=== PATIENT | male | born 1985 | race Caucasian/White ===

== ENCOUNTER → 2020-05-07 11:18 | Outpatient (CLI) | payer OTHER, SELFPAY ==
[2020-05-07 15:18] LABS: Anion Gap 6 (5-15); BUN 12 mg/dL (7-18); Calcium,Total 8.9 mg/dL (8.5-10.1); Chloride 109 mmol/L (98-107); Cholesterol 251 mg/dL (200); Creatinine, Serum 0.92 mg/dL (0.70-1.30); EST Glomerular Filtration Rate 101 mL/min (>60); Est Glom Filt Rate - Afr Amer 122 mL/min (>60); Glucose 119 mg/dL (74-106); High Density Lipoprotein 38 mg/dL; Potassium 4.2 mmol/L (3.5-5.1); Sodium Level 139 mmol/L (136-145); Triglycerides 326 mg/dL; Very Low Density Lipoprotein 65 mg/dL (5-40)
== END ==
PROVIDERS: PCP Family Medicine; Referring Provider Family Medicine; Visit Provider Family Medicine
DX: Z13.1 Encounter for screening for diabetes mellitus (principal); Z13.220 Encounter for screening for lipoid disorders
CPT/HCPCS: 36415; 80048; 80061

== ENCOUNTER → 2020-06-18 09:21 | Outpatient (CLI) | payer OTHER, SELFPAY | PROVIDERS: PCP Family Medicine; Visit Provider Family Medicine | DX: Z20.828 Contact with and (suspected) exposure to other viral communicable diseases (principal) | CPT/HCPCS: 87635; U0003 ==

== ENCOUNTER → 2021-03-18 09:36 | Outpatient (CLI) | payer OTHER, SELFPAY ==
[2021-03-18 12:35] LABS: Hemoglobin A1c 5.7 % (3.8-5.6)
[2021-03-18 12:37] LABS: AST(SGOT) 50 U/L (15-37); Alanine Aminotransfer ALT/SGPT 97 U/L (16-61); Albumin, Serum 3.7 g/dL (3.2-5.0); Alkaline Phosphatase 86 U/L (45-117); Anion Gap 6 (5-15); BUN 11 mg/dL (7-18); BUN/Creat Ratio 12.7 RATIO (10-20); Calcium,Total 8.8 mg/dL (8.5-10.1); Chloride 108 mmol/L (98-107); Cholesterol 241 mg/dL (200); Creatinine, Serum 0.86 mg/dL (0.70-1.30); EST Glomerular Filtration Rate 108 mL/min (>60); Est Glom Filt Rate - Afr Amer 130 mL/min (>60); Globulin 3.8 g/dL (2.2-4.2); Glucose 121 mg/dL (74-106); High Density Lipoprotein 34 mg/dL; Potassium 4.1 mmol/L (3.5-5.1); Protein, Total 7.5 g/dL (6.4-8.2); Sodium Level 139 mmol/L (136-145); Triglycerides 355 mg/dL; Very Low Density Lipoprotein 71 mg/dL (5-40)
== END ==
PROVIDERS: PCP Family Medicine; Referring Provider Family Medicine; Visit Provider Family Medicine
DX: R73.01 Impaired fasting glucose (principal); E78.5 Hyperlipidemia, unspecified
CPT/HCPCS: 36415; 80053; 80061; 83036

== ENCOUNTER 2023-12-15 17:25 | Emergency (ER) | payer BC, SELFPAY ==
[2023-12-15 17:25] VITALS: BP 125/90; PULSE 107; RESP 16; TEMP 36.6; O2SAT 99; BMI 33.0
--- NOTE | 2023-12-15 17:45 | RAD_ITS ---
STUDY: X-RAY - LEFT ANKLE REASON FOR EXAM: Male, 38 years old. SWELLING TECHNIQUE: 3 view(s) of the ankle. COMPARISON: None. FINDINGS: Normal visualized distal tibia and fibula. Normal medial and lateral malleoli. Normal tibiotalar articulation and ankle mortise. Normal visualized talus and calcaneus. The visualized subtalar, talonavicular, calcaneocuboid and tarsal articulations are normal. There is no demonstrated fracture. The soft tissue structures are unremarkable. RAD/Ankle min 3 Views IMPRESSION: Normal x-ray examination of the ankle. Electronically Signed: Ramón Johnson MD at 19:29 EDT ,
--- NOTE | 2023-12-15 18:29 | EDS_ITS ---
HPI History of Present Illness Chief Complaint: Lower Extremity Injury Narrative Narrative: 38-year-old male who denies significant past medical history presents with left foot pain to left ankle pain that he has had over the last few days. He relates history that he went to urgent care approximately 2 months ago but he had more medial foot and ankle pain. Now, he is having pain at the base of his fourth and fifth digits on his left foot, and on the lateral side of his foot. When he tries to move his foot and toes, he gets pain radiating up to his ankle. He denies any fevers or chills, no nausea or vomiting, no other symptoms. He describes the pain as sharp, and burning as well. PFSH PFS Home Medications ?Medication ?Instructions ?Recorded ?Last Taken ?Type NK 12/15/23 Unknown History epinephrine 0.3 mg/0.3 mL 0.3 mg (0.3 mL) IM Q4H PRN 12/15/23 Unknown Rx injection, auto-injector anaphylaxis #2 ea gabapentin 100 mg capsule 100 mg PO TID #21 caps 12/15/23 Unknown Rx Allergy/AdvReac Type Severity Reaction Status Date / Time No Known Allergies Allergy Verified 12/15/23 17:27 Social History Smoking Status: Never smoker ROS ROS ED ROS Narrative Constitutional: No fever, no chills. HEENT: No sore throat. No neck pain. No loss of vision. No rhinorrhea. Cardiovascular: No chest pain. No palpitations. No pedal edema. Respiratory: No cough, no shortness of breath. Abdominal: No abdominal pain. No nausea. No vomiting. Genitourinary: No dysuria. No hematuria. Musculoskeletal: No myalgias. Positive left foot and left ankle pain. Foot pain on the lateral aspect and on the top of his foot at the base of the fourth and fifth digits. Neurologic: No headaches. No dizziness. No lightheadedness. Skin: No rash. No change in color. Psychiatric: No depression. No anxiety. EXAM Physical Exam Narrative Exam Narrative: Afebrile. Vital signs noted. Regular rate and rhythm. Lungs clear to auscultation bilaterally. Abdomen soft nontender. Neurovascular intact left lower extremity with palpable dorsalis pedis pulse. No overt edema. 16-year-old no proximal fibular head tenderness. No Achilles tendon deficit. Positive dorsiflexion and plantarflexion at left ankle. Const Vital Signs: 12/15/23 17:25 Temperature 98 F Temperature Source Temporal Pulse Rate 107 H Respiratory Rate 16 Blood Pressure 125/90 H Blood Pressure Mean 101 Pulse Ox 99 Oxygen Delivery Method Room Air MDM MDM MDM Narrative Medical decision making narrative: Concern is for neuropathic pain, I have low suspicion for fracture concern is for neuropathic pain, I have low suspicion for fracture. However, x-rays will be obtained to rule out fracture, nurse ordered x-rays of the ankle, but I want to see where he is having his pain that is worse with standing and weightbearing on the foot. I do feel he would benefit from gabapentin and follow-up with podiatry on-call. X-rays of the left ankle and x-rays of the left foot were interpreted by myself independently and there is no evidence of acute fracture in the left ankle or the left foot. I reviewed the radiology reports for both x-rays, and radiology report confirms my independent interpretation. At this point in time, he was written a prescription for 21 gabapentin 100 mg capsules to take up to 3 times daily for his neuropathic pain. I feel he probably has more of a peripheral neuropathy or neuropathic pain. He was referred to the retention manager on-call, Dr. Gayle. He states he has an ankle brace at home that he can wear. 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 He should follow-up with her primary care physician for future prescription refills. I feel he can be discharged safely home with follow-up. Return instructions reviewed. Disposition is discharged home in stable condition. History & Record Review Discussion w/independent historian: Patient Radiography Diagnostic Testing: Clinical Impression(s) from Imaging Studies Ankle X-Ray 12/15/23 17:45 IMPRESSION: Normal x-ray examination of the ankle. Electronically Signed: Ramón Johnson MD at 19:29 EDT , Foot X-Ray 12/15/23 18:38 IMPRESSION: Normal x-ray examination of the foot. Electronically Signed: Ramón Johnson MD at 19:35 EDT , Discharge Plan Triage Chief Complaint: Lower Extremity Injury ED Provider: Rodrigo Palmer Dx/Rx/DC Orders Clinical Impression: Left foot pain, Neuropathic pain of left foot, Has run out of medications Instructions: ED Neuropathy, Peripheral, ED Pain, Acute, Uncertain Cause Prescriptions: New gabapentin 100 mg capsule 100 mg PO TID Qty: 21 0RF epinephrine 0.3 mg/0.3 mL auto-injector 0.3 mg IM Q4H PRN (Reason: anaphylaxis) Qty: 2 0RF No Action NK Primary Care Provider: Care Physician,No Primary Referrals: Alpesh Gayle DPM [Med Staff - Active Staff] - 3-5 Days NOT,DEFINED [Non-Staff] - Print Language: Burmese Disposition Disposition: Home, Self Care
--- NOTE | 2023-12-15 18:38 | RAD_ITS ---
STUDY: X-RAY - LEFT FOOT CLINICAL: Male, 38 years old. Pain TECHNIQUE: 3 view(s) of the foot. COMPARISON: None. FINDINGS: Normal talus, calcaneus, and tarsal bones. Normal visualized subtalar, talonavicular, calcaneocuboid, tarsal and tarsometatarsal articulations. Normal metatarsi. Normal metatarsophalangeal joint of the great toe. Normal tibial and fibular sesamoid bones. Normal interphalangeal joint of the great toe. Normal phalanges of the great toe. Normal second through fifth metatarsophalangeal joints. Normal interphalangeal joints and phalanges of the lesser toes. The soft tissue structures are unremarkable. There is no demonstrated fracture. RAD/Foot min 3 Views IMPRESSION: Normal x-ray examination of the foot. Electronically Signed: Ramón Johnson MD at 19:35 EDT ,
== END 2023-12-15 20:04 | disposition home or self-care (01) ==
PROVIDERS: Emergency Provider Emergency Medicine; Visit Provider Emergency Medicine
DX: G62.9 Polyneuropathy, unspecified (principal)
CPT/HCPCS: 73610; 73630; 99282

== ENCOUNTER → 2023-12-22 | Outpatient (CLI) | payer BC, SELFPAY ==
--- NOTE | 2023-12-22 12:35 | RAD_ITS ---
STUDY: X-RAY - LUMBAR SPINE REASON FOR EXAM: Male, 38 years old. SCIATICA TECHNIQUE: 4 view(s) of the lumbar spine were obtained including oblique views. COMPARISON: None FINDINGS: Normal lumbar lordosis. There is no substantial scoliosis. There is a normal alignment of the vertebrae. Normal vertebral bodies and endplates. Normal disc space heights. The soft tissue structures are unremarkable. RAD/L/S Spine Min 4 Views IMPRESSION: Normal x-ray examination of the lumbar spine. Electronically Signed: Eddie Ellison MD at 15:39 EDT ,
== END | disposition home or self-care (01) ==
LOC: MTRAD 12:32
PROVIDERS: PCP Family Medicine; Referring Provider Family Medicine; Visit Provider Family Medicine
DX: M54.40 Lumbago with sciatica, unspecified side (principal)
CPT/HCPCS: 72110

== ENCOUNTER → 2024-06-23 | Outpatient (CLI) | payer BC, SELFPAY ==
--- NOTE | 2024-06-23 09:14 | RAD_ITS ---
EXAM: XR RIGHT SHOULDER COMPLETE, 2 OR MORE VIEWS CLINICAL INDICATION: right shoulder pain TECHNIQUE: Two or more views of the right shoulder. COMPARISON: No relevant prior studies available. FINDINGS: BONES/JOINTS: Unremarkable. No acute fracture. No subluxation. Normal alignment. Preservation of the joint space. No sclerotic or destructive changes observed. SOFT TISSUES: Unremarkable. No soft tissue swelling or gas. No radiopaque foreign body. LUNGS AND PLEURAL SPACES: Normal variant azygos lobe at the right lung apex. RAD/Shoulder min 2 Views IMPRESSION: No significant abnormalities involving the right shoulder. Electronically Signed: Wang Damon MD at 11:47 EST ,
== END | disposition home or self-care (01) ==
LOC: MTRAD 09:13
PROVIDERS: PCP Family Medicine; Referring Provider Family Medicine; Visit Provider Family Medicine
DX: M25.511 Pain in right shoulder (principal)
CPT/HCPCS: 73030

== ENCOUNTER → 2024-07-25 | Outpatient (CLI) | payer BC, SELFPAY ==
[2024-07-25 15:12] LABS: Absolute Lymphocyte Count 1.58 X10^3/uL (0.83-4.51); Absolute Neutrophil Count 7.8 X10^3/uL (2.0-7.7); Basophil# 0.03 X10^3/uL; Basophil% 0.3 % (0-1); Eosinophil# 0.01 X10^3/uL; Eosinophils% 0.1 % (0-5); Hematocrit 45.7 % (40-54); Hemoglobin 16.1 g/dL (13.0-16.5); Lymphocyte # 1.58 X10^3/ul (0.83-4.51); Lymphocyte % 15.7 % (19-41); Mean Corp Hgb Conc 35.2 g/dL (32-36); Mean Corpuscular Hgb 31.6 pg (27.0-32.0); Mean Corpuscular Volume 89.8 fL (80-94); Mean Platelet Vol. 9.1 fl (6.2-12.0); Monocyte# 0.62 X10^3/uL; Monocyte% 6.1 % (0-10); NRBC Flagged by Analyzer 0 % (0-5); Neutrophil # 7.79 X10^3/uL (2.7-7.7); Neutrophil % 77.2 % (47-70); Platelet Count 300 K/mm3 (150-450); RBC Distribution Width SD 39.8 fl (35.1-43.9); Red Blood Count 5.09 M/mm3 (4.6-6.2); White Blood Count 10.1 K/mm3 (4.4-11.0)
[2024-07-25 15:50] LABS: ALB/GLOB Ratio 1.1 RATIO (0.9-2.4); AST(SGOT) 18 U/L (15-37); Alanine Aminotransfer ALT/SGPT 46 U/L (16-61); Alkaline Phosphatase 80 U/L (45-117); Anion Gap 5 (5-15); BUN 15 mg/dL (7-18); BUN/Creat Ratio 16.9 RATIO (10-20); Calcium,Total 9.5 mg/dL (8.5-10.1); Chloride 109 mmol/L (98-107); Cholesterol 255 mg/dL (200); Creatinine, Serum 0.88 mg/dL (0.70-1.30); EST Glomerular Filtration Rate 103 mL/min (>60); Est Glom Filt Rate - Afr Amer 125 mL/min (>60); Globulin 3.6 g/dL (2.2-4.2); Glucose 123 mg/dL (74-106); High Density Lipoprotein 51 mg/dL; Potassium 4.5 mmol/L (3.5-5.1); Protein, Total 7.6 g/dL (6.4-8.2); Sodium Level 139 mmol/L (136-145); Triglycerides 173 mg/dL; Very Low Density Lipoprotein 35 mg/dL (5-40)
== END | disposition home or self-care (01) ==
LOC: MTLAB 10:54
PROVIDERS: PCP Family Medicine; Referring Provider Family Medicine; Visit Provider Family Medicine
DX: Z00.00 Encounter for general adult medical examination without abnormal findings (principal); E78.5 Hyperlipidemia, unspecified; Z13.1 Encounter for screening for diabetes mellitus
CPT/HCPCS: 36415; 80053; 80061; 85025

== ENCOUNTER 2025-03-21 14:50 | Emergency (ER) | payer OTHER, SELFPAY ==
[2025-03-21 14:50] VITALS: BP 131/97; PULSE 63; RESP 15; TEMP 36.8; O2SAT 98; BMI 35.7
--- NOTE | 2025-03-21 15:40 | EX.ED.DYSGE1 ---
HPI History of Present Illness Chief Complaint: Lower Extremity Injury Narrative Narrative: Chief complaint and HPI: 39-year-old male with no significant past medical history who presents for evaluation of right ankle pain. Patient states he was at work when he fell down 2 steps. States that he rolled his right ankle. Has some mild pain and swelling. Able to ambulate. He denies hitting his head or injuring other body parts. Denies any numbness or tingling. Review of systems: See HPI Medications: As listed on the chart Allergies: As listed on the chart PFSH: Per chart Vital signs: As listed on the chart. Reviewed. Physical exam: Gen: A&O x3, NAD Head: Normocephalic, atraumatic Eyes: No sclera icterus, conjunctiva clear ENT: Moist mucous membranes CV: Regular rate Resp: Nonlabored respirations Musc: Full ROM of all the extremities including the right lower extremity, mild tenderness to palpation along the lateral malleolus of the right ankle where there is swelling-no ecchymosis, no deformity, strength +5/5 in plantarflexion and dorsiflexion of the ankle, DP/PT pulses +2, good capillary refill, compartments soft, Achilles and calcaneus nontender, knee/tib-fib/foot nontender to palpation Skin: Warm, dry Neuro: Alert, oriented, grossly intact, sensation intact Psych: Cooperative, appropriate mood and affect [facility] Medical History (Updated 03/21/25 @ 16:[address] Barry Marcus, ) Impingement of right shoulder Right shoulder pain Home Medications ?Medication ?Instructions ?Recorded ?Last Taken ?Type epinephrine 0.3 mg/0.3 mL 0.3 mg (0.3 mL) IM Q4H PRN 12/15/23 Unknown Rx injection, auto-injector anaphylaxis #2 ea Allergy/AdvReac Type Severity Reaction Status Date / Time No Known Allergies Allergy Verified 03/21/25 14:53 Social History Smoking Status: Never smoker EXAM Physical Exam Const Vital Signs: 03/21/25 14:50 Temperature 98.3 F Temperature Source Oral Pulse Rate 63 Respiratory Rate 15 Blood Pressure 131/97 H Blood Pressure Mean 108 Pulse Ox 98 MDM MDM MDM Narrative Medical decision making narrative: 39-year-old male with no significant past medical history who presents for evaluation of right ankle pain. Patient states he was at work when he fell down 2 steps. States that he rolled his right ankle. Has some mild pain and swelling. Able to ambulate. Denies injury elsewhere. Denies hitting his head. See physical exam findings. Differential diagnosis includes but is not limited to right ankle sprain, right ankle fracture. Patient offered pain medicine but declined. X-ray of the ankle ordered. X-ray of the right ankle was personally viewed interpreted by me, ED physician. No fracture or dislocation. Swelling visualized. Patient's symptoms are likely secondary to right ankle sprain. Was given education on RICE. Follow-up with Worker's Compensation. He confirmed understand the plan. Tylenol Motrin as needed for pain. Impression: 1. Right ankle sprain 2. Fall down steps Radiography Diagnostic Testing: Clinical Impression(s) from Imaging Studies Ankle X-Ray 03/21/25 16:13 IMPRESSION: On lateral imaging, normal contour of the Achilles tendon is seen. No ankle joint effusion is noted No significant arthritic process or joint narrowing is seen. No fracture or dislocation is evident. Surgical Reading Location: [place] [address] Discharge Plan Triage Chief Complaint: Lower Extremity Injury ED Provider: Barry Marcus Dx/Rx/DC Orders Clinical Impression: Right ankle sprain Instructions: ED Ankle Sprain (Adult), ED RICE Prescriptions: No Action epinephrine 0.3 mg/0.3 mL auto-injector 0.3 mg IM Q4H PRN (Reason: anaphylaxis) Qty: 2 0RF Primary Care Provider: Indio Hernandez Referrals: [facility] [Group of Physicians] - 3-5 Days Activity Restrictions/Additional Instructions: Follow-up with Worker's Compensation. Ibuprofen and Tylenol as needed for pain. Ice and elevation as needed for swelling. Return back to the ED if symptoms change or worsen. Print Language: Cook Islander Disposition Disposition: Home, Self Care
--- NOTE | 2025-03-21 16:13 | RAD_ITS ---
PROCEDURE: ANKLE MIN 3 VIEWS 03/21/2025 REASON FOR EXAM: PAIN following injury TECHNIQUE: Procedure Code: RADANK Modality: DX Procedure: ANKLE MIN 3 VIEWS Laterality: Right COMPARISON: None. RAD/Ankle min 3 Views IMPRESSION: On lateral imaging, normal contour of the Achilles tendon is seen. No ankle joint effusion is noted No significant arthritic process or joint narrowing is seen. No fracture or dislocation is evident. Surgical Reading Location: [place] [id number]
--- NOTE | 2025-03-21 16:29 | ED.RN ---
pt. stated he was very sure that he did not have to had drug or alcohol testing for workers comp. Pt. told that if he is supposed to test and does not that could be a problem with his workers comp claim. Pt. verbalized understanding.
[2025-03-21 16:48] VITALS: BP 128/80; PULSE 75; RESP 18; TEMP 36.8; O2SAT 98
== END 2025-03-21 16:49 | disposition home or self-care (01) ==
PROVIDERS: Emergency Provider Surgery; PCP Family Medicine; Visit Provider Surgery
DX: S93.401A Sprain of unspecified ligament of right ankle, initial encounter (principal); W10.9XXA Fall (on) (from) unspecified stairs and steps, initial encounter
CPT/HCPCS: 73610; 99282